=== PATIENT | male | born 1945 | race Hispanic/Latino ===

== ENCOUNTER 2017-05-27 06:32 | Inpatient (IN) | payer OTHER ==
[2017-05-24 11:23] LABS: BASOPHILS % 0.8 % (0.0-1.0); EOSINOPHILS # (AUTO) 0.3 (0.0-0.4); EOSINOPHILS % 5.2 % (0.0-6.0); HEMATOCRIT 44.2 % (38.2-49.6); HEMOGLOBIN 15.1 g/dL (14.0-18.0); LYMPHOCYTES # (AUTO) 1.4 (1.0-3.2); LYMPHOCYTES % 27.6 % (18.0-39.1); MEAN CORPUSCULAR HEMOGLOBIN 28.7 pg (28-32); MEAN CORPUSCULAR HGB CONC 34.2 g/dL (31-35); MONOCYTES # (AUTO) 0.4 (0.2-0.8); MONOCYTES % 8.5 % (4.4-11.3); NEUTROPHILS # (AUTO) 2.9 (2.1-6.9); NEUTROPHILS % 57.9 % (38.7-80.0); PLATELET COUNT 209 x10e3/uL (140-360); RED BLOOD COUNT 5.26 x10e6/uL (4.3-5.7); RED CELL DISTRIBUTION WIDTH 14.4 % (11.7-14.4)
[2017-05-24 11:37] LABS: ANION GAP 14.5 mmol/L (8-16); BLOOD UREA NITROGEN 20 mg/dL (7-26); BUN/CREATININE RATIO 25 (6-25); CALCIUM 10.1 mg/dL (8.4-10.2); CARBON DIOXIDE 29 mmol/L (22-29); CHLORIDE 104 mmol/L (98-107); CREATININE, SERUM 0.81 mg/dL (0.72-1.25); EST GLOMERULAR FILTRATION RATE > 60 ML/MIN (60-); GLUCOSE 121 mg/dL (74-118); POTASSIUM 4.5 mmol/L (3.5-5.1); SODIUM 143 mmol/L (136-145)
--- NOTE | 2017-05-24 11:56 | Diagnostic Imaging Report ---
PROCEDURE: Frontal and lateral views of the chest. COMPARISON: None. INDICATIONS: PRE OPERATIVE CHEST X-RAY FOR KNEE SURGERY FINDINGS: Lines/tubes: None. Lungs: The lungs are well inflated and clear. There is no evidence of pneumonia or pulmonary edema. Pleura: There is no pleural effusion or pneumothorax. Heart and mediastinum: Tortuous aorta. The heart and the mediastinum are normal. Bones: No acute bony abnormality. Mild degenerative changes of the spine. Upper abdomen: Multiple coils project over the upper abdomen. No free air under the diaphragm. IMPRESSION: No acute cardiopulmonary disease. Dictated by: Rell Jarrell M.D. on 05/24/2017 at 11:56 Electronically approved by: Rell Jarrell M.D. on 05/24/2017 at 11:56
[~2017-05-27] VITALS: Ht 124.2 cm; Wt 67.1 kg
[~2017-05-27 06:32] MED LIST: AMLODIPINE BESYL5 MG PO; GABAPENTIN300 MG PO; HYDROCHLOROTHIA25 MG PO; LEVOTHYROXINE112 MCG PO; MELOXICAM PO; METFORMIN HCL500 MG PO; SIMVASTATIN20 MG PO
--- OUTSIDE RECORDS SUMMARY | 2017-05-27 06:34 | XMS REPORT ---
[facility] Address Unknown Phone Unavailable Care Team Providers Care Process Development Chemist Name Role Phone CHRIS AVLARADO Unavailable Unavailable Problems This patient has no known problems. Allergies, Adverse Reactions, Alerts This patient has no known allergies or adverse reactions. Medications This patient has no known medications. Results Test Description Test Time Test Comments Text Results Atomic Results Result Comments CHEST 2 VIEWS [place] [address] Patient Name: CELSO GARCIA MR #: [id number] : 1945 Age/Sex: 71/M Req # : [id number] Adm Physician: Ordered by: CHRIS ALVARADO MD Report #: [id number] Location: OR Room/Bed: Procedure: [id number] DX/CHEST 2 VIEWS Exam Date: 05/24/17 Exam Time: 1110 REPORT STATUS: Signed PROCEDURE: Frontal and lateral views of the chest. COMPARISON: None. INDICATIONS: PRE OPERATIVE CHEST X- RAY FOR KNEE SURGERY FINDINGS: Lines/tubes: None. Lungs: The lungs are well inflated and clear. There is no evidence of pneumonia or pulmonary edema. Pleura: There is no pleural effusion or pneumothorax. Heart and mediastinum: Tortuous aorta. The heart and the mediastinum are normal. Bones: No acute bony abnormality. Mild degenerative changes of the spine. Upper abdomen: Multiple coils project over the upper abdomen. No free air under the diaphragm. IMPRESSION: No acute cardiopulmonary disease. Dictated by: Rell Flores M.D. on 2017 at 11:56 Electronically approved by: Rell Flores M.D. on 2017 at 11:56 Dictated By: RELL FLORES MD [id number] Transcribed By: NELIDA on 05/24/17 1156 COPY TO: CHRIS ALVARADO MD
[2017-05-27] MEDS ORDERED: DEXAMETHASONE SOD PHOS 10 MG/1 ML VIAL ONE (07:06)
[2017-05-27] MEDS ORDERED: GABAPENTIN 300 MG CAP ONE (07:06)
[2017-05-27] MEDS ORDERED: CELECOXIB 200 MG CAP ONE (07:06)
[2017-05-27] MEDS ORDERED: CEFAZOLIN SOD 2 GM/D5W 50ML 50 ML IV ONE (07:07)
[2017-05-27] MEDS ORDERED: ROPIVACAINE 246.25 MG, EPINEPHRINE HCL 1:1000 0.5 MG, CLONIDINE HCL 0.08 MG, KETOROLAC ... INJ ONE ×5 (07:30)
[2017-05-27] MEDS ORDERED: MUPIROCIN 2% OINT 22 GM TUBE ONE (08:30)
[2017-05-27] MEDS ORDERED: TRANEXAMIC ACID 1,000 MG/10 ML ML ONE (08:31)
[2017-05-27] MEDS ORDERED: BACITRACIN 50,000 UNIT VIAL ONE (08:31)
[2017-05-27] MEDS: SODIUM CHLORIDE 0.9% 1000ML 1,000 ML IV SCH ×3 (10:28→21:30)
[2017-05-27] MEDS ORDERED: DOCUSATE SODIUM 100 MG CAP PO PRN (10:30)
[2017-05-27] MEDS ORDERED: PROMETHAZINE HCL (IM) 25 MG/ML VIAL INJ PRN (10:30)
[2017-05-27] MEDS ORDERED: HYDROCODONE/APAP 7.5MG-325MG 1 EA TAB PO PRN (10:30)
[2017-05-27] MEDS ORDERED: ACETAMINOPHEN 650 MG SUPP PR PRN (10:30)
[2017-05-27] MEDS ORDERED: ZOLPIDEM TARTRATE 5 MG TAB PO PRN (10:30)
[2017-05-27] MEDS ORDERED: DIPHENHYDRAMINE HCL INJ 50 MG/ML VIAL IM/IV PRN (10:30)
[2017-05-27] MEDS ORDERED: KETOROLAC TROMETHAMINE 30 MG/ML VIAL IV PRN (10:30)
[2017-05-27] MEDS ORDERED: ONDANSETRON HCL INJ 2 MG/ML VIAL IV PRN (10:30)
[2017-05-27] MEDS ORDERED: HYDROCODONE/APAP 5MG-325MG TAB PO PRN (10:30)
--- NOTE | 2017-05-27 11:15 | Diagnostic Imaging Report ---
PROCEDURE: X-RAY RIGHT KNEE, ONE OR TWO VIEWS COMPARISON: None. INDICATIONS:POST-OP FINDINGS: See conclusion. CONCLUSION: Status post total right knee replacement with surrounding soft tissue swelling, air and jcarlos consistent with recent surgery. No periprosthetic displaced fractures. Dictated by: Louis Angel M.D. on 05/27/2017 at 11:15 Electronically approved by: Louis Angel M.D. on 05/27/2017 at 11:15
[2017-05-27 11:58] VITALS: BP 110/75
[2017-05-27 12:30] VITALS: BP 110/75
[2017-05-27] MEDS ORDERED: CEFAZOLIN SOD 1 GM/NS 50ML 50 ML IV SCH (14:00)
--- NOTE | 2017-05-27 14:20 | Operative Report ---
DATE OF PROCEDURE: May 27, 2017 ORDER RUNNER: Glen Santana PA-C The patient was brought to the operating room for induction of anesthesia. Throughout this case, my PA's assistance was necessary for retraction of soft tissue and positioning of the extremity. This allows for efficient and technically successful execution of the operation and is considered medically necessary. PREOPERATIVE DIAGNOSIS: Osteoarthritis, right knee. POSTOPERATIVE DIAGNOSIS: Osteoarthritis, right knee. PROCEDURE: Right total knee arthroplasty. INDICATIONS: The patient is a 71-year-old gentleman who has end-stage arthritis of both knees. He has failed conservative management and would like to proceed with a right total knee replacement. The risks and benefits of the procedure have been discussed. He states he understands and wishes to proceed. DESCRIPTION OF PROCEDURE: The patient was brought into the operating room and placed under general anesthetic. He received a regional block, prophylactic antibiotics and tranexamic acid in the holding area. His right lower extremity was prepped and draped in a sterile manner. A preoperative time out was performed. The extremity was exsanguinated and a proximal tourniquet was inflated to 300 mmHg. An anterior approach with a medial parapatellar arthrotomy was performed. Soft tissue releases were performed to bring the knee up into flexion with the patella everted. Marginal osteophytes, meniscal remnants and the cruciate ligaments were removed. A Daniel [employer] Nephew Jyothi II posterior stabilized knee system was used. An extramedullary cutting guide was used to resect the proximal tibia. The tibial baseplate was a size #4. A +2 mm cut was necessary due to the excessive medial wear. He also had quite limited motion prior to the surgery. The central fen punch was impacted and attention was directed towards the distal femur. An intramedullary cutting guide was used to resect the distal femur in 6 degrees of valgus and rotation referenced off of a combination of landmarks, including [place] line, the epicondylar axis and the posterior condyles. Complete loss of articular cartilage down to polished subchondral bone on the medial side was noted. The femoral component was a size # 5. The anterior and posterior cuts were made. Trial reductions were performed. An 11 mm ultra congruent tibial insert provided appropriate soft tissue balancing in full extension and 90 degrees of flexion. The patella had been resurfaced with a 32 mm x 7.5 mm patellar button. The thickness before after resurfacing was 22 mm. Patellar tracking was noted to be concentric. The quadriceps were moderately tight in any degree of flexion beyond 90 degrees. The trial implants were then all removed. A 100 mL premixed pericapsular DARRYL injection was placed into the soft tissue around the knee. The knee was thoroughly irrigated with a Pulsavac. The components were cemented into place using a single mix cephalic cement preloaded with antibiotics. Care was taken to remove extravasated cement. The wound was further irrigated with a pulsatile lavage while the cement cured. The arthrotomy was then closed with interrupted #1 Ethibond in a figure-of-8 fashion. The knee was put through flexion and extension each time to ensure a secure closure. The skin was closed with subcuticular Vicryl and jcarlos. A sterile bandage was applied. The patient was extubated and transferred to the recovery room and in stable condition. Blood loss was minimal. All needle and sponge counts were correct. Job#: [id number] JEFRY
[2017-05-27] MEDS: ACETAMINOPHEN 1000 MG/100 ML IV SCH ×3 (14:22→23:50)
[2017-05-27] MEDS: CEFAZOLIN SOD 1 GM VIAL IV SCH ×2 (16:44→23:49)
[2017-05-27 17:04] VITALS: BP 110/75
[2017-05-27] MEDS: CELECOXIB 200 MG CAP PO SCH (17:40)
[2017-05-27] MEDS: ASPIRIN 325 MG TAB PO SCH (17:40)
[2017-05-27] MEDS ORDERED: ROPIVACAINE 0.5% 5 MG/ML 30 ML SDV ONE (18:11)
[2017-05-27] MEDS ORDERED: LIDOCAINE 2% /EPINEPHRINE 20 ML SDV INJ ONE (18:11)
[2017-05-27 18:16] VITALS: BP 98/60
[2017-05-27] MEDS ORDERED: FENTANYL CITRATE/PF 100MCG/2 ML INJ ONE (18:19)
[2017-05-27] MEDS ORDERED: MIDAZOLAM HCL 2 MG/2 ML VIAL ONE (18:19)
[2017-05-27] MEDS ORDERED: MORPHINE SULFATE INJ 10 MG/ML ONE (18:19)
[2017-05-27] MEDS ORDERED: LIDOCAINE HCL 2% LOCAL INJ 5 ML SDV VIAL INJ ONE (18:32)
[2017-05-27] MEDS ORDERED: PROPOFOL IV EMULSION 10 MG/ML 20 ML VIAL ONE (18:32)
[2017-05-27] MEDS ORDERED: METOCLOPRAMIDE HCL 10 MG/2ML VIAL ONE (18:32)
[2017-05-27] MEDS ORDERED: ONDANSETRON HCL INJ 2 MG/ML VIAL ONE (18:32)
[2017-05-27] MEDS ORDERED: ACETAMINOPHEN 1000 MG/100 ML IV ONE (18:32)
[2017-05-27] MEDS ORDERED: SEVOFLURANE INHAL SOLN 250 ML PEN BTL ONE (18:32)
[2017-05-27 20:00] VITALS: BP 98/60
[2017-05-27] MEDS ORDERED: SIMVASTATIN 20 MG TAB PO SCH (21:00)
[2017-05-27 23:59] VITALS: BP_SYST 98; BP_SYST 99; BP_DIAS 60
[2017-05-28 04:17] VITALS: BP 105/71
[2017-05-28] MEDS: ACETAMINOPHEN 1000 MG/100 ML IV SCH (05:29)
[2017-05-28] MEDS ORDERED: LEVOTHYROXINE SODIUM 112 MCG TAB PO SCH ×2 (06:00→09:00)
[2017-05-28 06:16] LABS: HEMATOCRIT 30.9 % (38.2-49.6); HEMOGLOBIN 10.5 g/dL (14.0-18.0)
[2017-05-28 07:20] VITALS: BP 108/74
[2017-05-28] MEDS ORDERED: METFORMIN HCL 500 MG TAB PO SCH (09:00)
[2017-05-28] MEDS ORDERED: HYDROCHLOROTHIAZIDE 25 MG TAB PO SCH (09:00)
[2017-05-28] MEDS ORDERED: GABAPENTIN 300 MG CAP PO SCH (09:00)
[2017-05-28] MEDS ORDERED: AMLODIPINE BESYLATE 5 MG TAB PO SCH (09:00)
[2017-05-28] MEDS ORDERED: MELOXICAM 7.5 MG TAB PO SCH (09:00)
[2017-05-28] MEDS ORDERED: MELOXICAM 15 MG PO SCH (09:00)
[2017-05-28] MEDS ORDERED: DEXTROSE 50% SYRINGE 50 ML IV PRN (09:15)
--- NOTE | 2017-05-28 09:33 | History and Physical ---
NO DICTATION, LENGTH 6 SECONDS. Job#: [id number] MH
[2017-05-28] MEDS ORDERED: CEFAZOLIN SOD 1 GM VIAL IV SCH (10:00)
[2017-05-28] MEDS: CEFAZOLIN SOD 1 GM VIAL IV SCH (10:14)
[2017-05-28] MEDS: CELECOXIB 200 MG CAP PO SCH (10:16)
[2017-05-28] MEDS: ASPIRIN 325 MG TAB PO SCH (10:16)
[2017-05-28] MEDS ORDERED: ACETAMINOPHEN 1000 MG/100 ML IV PRN (10:30)
--- NOTE | 2017-05-28 10:37 | Consultation ---
DATE OF CONSULTATION: May 28, 2017 PRIMARY CARE PHYSICIAN: Dr. Marcello Overton REASON FOR CONSULTATION: Medical management. HISTORY: Patient is a 71-year-old male with multiple chronic baseline medical problems. The patient has history of back surgery. He is also now status post right knee replacement. The patient is stable. Pain controlled. He does not have any chest pain or shortness breath. The patient is in recovery postop. PAST MEDICAL HISTORY: Osteoarthritis, diabetes, type 2, hypertension, hyperlipidemia, diabetic neuropathy, hypothyroidism. PAST SURGICAL HISTORY: Lumbosacral spine surgeries, status post right knee replacement. SOCIAL HISTORY: Patient does not smoke or use alcohol. No recreational drug use. ALLERGIES: NO KNOWN ALLERGIES. HOME MEDICATIONS: Norvasc, gabapentin, hydrochlorothiazide, levothyroxine, metformin, meloxicam, and simvastatin. REVIEW OF SYSTEMS: Postop and pain adequate and appropriate. PHYSICAL EXAMINATION VITAL SIGNS: Temperature is 98, blood pressure 105/71, pulse rate 63, respirations 18. GENERAL: The patient is not in acute distress. He is awake. HEENT: Normocephalic, atraumatic and anicteric. NECK: Supple grossly. PULMONARY: Clear. CARDIOVASCULAR: Regular rate and rhythm. ABDOMEN: Soft and unremarkable. EXTREMITIES: No gross cyanosis or edema. Postop right knee replacement. NEUROLOGIC: No gross focal deficit. LABORATORY: Sodium is 143, potassium 4.3, chloride 104, bicarb 29, BUN 20, creatinine 0.8, glucose 121. WBC is 5, hemoglobin 10.5, hematocrit 31, and platelets 209,000. IMPRESSION 1. Postoperative day #1 right knee replacement. 2. Chronic multiple baseline problems. 3. Hypertension. 4. Hyperlipidemia. 5. Diabetes, type 2. PLAN: Adjust home medications. Pain control. PT and OT. Postop care. Thank you, Dr. Driver, for this consultation. Will adjust the patient's medications. Job#: [id number] RI
[2017-05-28 10:56] VITALS: BP 127/79
[2017-05-28 10:57] VITALS: BP 127/79
[2017-05-28] MEDS ORDERED: INSULIN LISPRO 100 UNIT/1 ML 3ML VIAL SQ SCH (11:30)
[2017-05-28] MEDS ORDERED: ASPIRIN325 MG PO (11:59)
[2017-05-28 16:16] VITALS: BP 129/86
== END 2017-05-28 16:45 | disposition home or self-care (01) | DRG 470 ==
LOC: OR 06:32 → IMCU 12:24
PROVIDERS: ADMIT Specialist; ATTEND Specialist
PROC: 0SRC0J9 Replacement of Right Knee Joint with Synthetic Substitute, Cemented, Open Approach (ICD-10-PCS; principal; 2017-05-27 09:30)
DX: M17.0 Bilateral primary osteoarthritis of knee (principal); E11.40 Type 2 diabetes mellitus with diabetic neuropathy, unspecified; E78.5 Hyperlipidemia, unspecified; I10 Essential (primary) hypertension; E03.9 Hypothyroidism, unspecified; Z79.82 Long term (current) use of aspirin
CPT/HCPCS: 36415; 71046; 80048; 82948; 85014; 85018; 85025; 86850; 86900; 86920; 96372; C1713; J0171; J0690; J1100; J1885; J2001; J2250; J2270; J2405; J2765; J2795; J7030

== ENCOUNTER 2017-11-12 06:27 | Observation (INO) | payer OTHER ==
[~2017-11-12] VITALS: Ht 177.8 cm; Wt 69.9 kg
[~2017-11-12 06:27] MED LIST changes: +ASPIRIN325 MG PO; +MELOXICAM15 MG PO; +TYLENOL WITH C1 EACH PO
[2017-11-12] MEDS ORDERED: DEXAMETHASONE SOD PHOS 10 MG/1 ML VIAL ONE (06:42)
[2017-11-12] MEDS ORDERED: CEFAZOLIN SOD 2 GM/D5W 50ML 50 ML IV ONE (06:42)
[2017-11-12] MEDS ORDERED: CELECOXIB 200 MG CAP ONE (06:42)
[2017-11-12] MEDS ORDERED: GABAPENTIN 300 MG CAP ONE (06:43)
[2017-11-12] MEDS ORDERED: TRANEXAMIC ACID 1,000 MG/10 ML ML ONE (06:50)
[2017-11-12] MEDS ORDERED: BACITRACIN 50,000 UNIT VIAL ONE (06:50)
[2017-11-12] MEDS ORDERED: ROPIVACAINE 246.25 MG, EPINEPHRINE HCL 1:1000 0.5 MG, CLONIDINE HCL 0.08 MG, KETOROLAC ... INJ ONE ×5 (07:30)
[2017-11-12] MEDS ORDERED: ACETAMINOPHEN 1000 MG/100 ML 100 ML IV ONE ×2 (08:11→13:36)
[2017-11-12] MEDS ORDERED: SODIUM CHLORIDE 0.9% 1000ML 1,000 ML IV SCH (09:53)
[2017-11-12] MEDS ORDERED: HYDROCODONE/APAP 7.5MG-325MG 1 EA TAB PO PRN (10:00)
[2017-11-12] MEDS ORDERED: DOCUSATE SODIUM 100 MG CAP PO PRN (10:00)
[2017-11-12] MEDS ORDERED: ONDANSETRON HCL INJ 2 MG/ML VIAL IV PRN (10:00)
[2017-11-12] MEDS ORDERED: ZOLPIDEM TARTRATE 5 MG TAB PO PRN (10:00)
[2017-11-12] MEDS ORDERED: ACETAMINOPHEN 650 MG SUPP PR PRN (10:00)
[2017-11-12] MEDS ORDERED: PROMETHAZINE HCL (IM) 25 MG/ML VIAL INJ PRN (10:00)
[2017-11-12] MEDS ORDERED: DIPHENHYDRAMINE HCL INJ 50 MG/ML VIAL IM/IV PRN (10:00)
[2017-11-12] MEDS ORDERED: HYDROCODONE/APAP 5MG-325MG TAB PO PRN (10:00)
[2017-11-12] MEDS ORDERED: KETOROLAC TROMETHAMINE 30 MG/ML VIAL IV PRN (10:00)
--- NOTE | 2017-11-12 12:13 | Diagnostic Imaging Report ---
Exam: Left Knee AP and lateral. History: Status post left knee replacement Comparison: None. Findings: See impression. Impression: 1. Status post total knee replacement with femoral and tibial components in satisfactory alignment. Hardware is intact. 2. Expected postoperative changes of soft tissue gas and multiple metallic jcarlos. 3. Rest of the bony structures intact. Signed by: Dr. Mike Pollard M.D. on 11/12/2017 12:09 PM
--- NOTE | 2017-11-12 12:51 | Operative Report ---
DATE OF PROCEDURE: November 12, 2017 PRESIDENT [place]: Glen Santana PA-C The patient was brought to the operating room for induction of anesthesia. Throughout this case, my PA's assistance was necessary for retraction of soft tissue and positioning of the extremity. This allows for efficient and technically successful execution of the operation and is considered medically necessary. PREOPERATIVE DIAGNOSIS: Osteoarthritis, left knee. POSTOPERATIVE DIAGNOSIS: Osteoarthritis, left knee. PROCEDURE: Left total knee arthroplasty. INDICATIONS: The patient is a 71-year-old gentleman who has end-stage arthritis in his left knee. He has failed conservative management and would like to proceed with a left total knee replacement. He went through a right total knee replacement earlier this year and is happy with his progress. I have reviewed the risks and benefits. He states he understands and wishes to proceed. DESCRIPTION OF PROCEDURE: The patient was brought to the operating room and placed under general anesthetic. He received a regional block, prophylactic antibiotics and tranexamic acid in the holding area. His left lower extremity was prepped and draped in a sterile manner. A preoperative time out was performed. Extremity was exsanguinated, and a proximal tourniquet was inflated to 300 mmHg. An anterior approach with a medial parapatellar arthrotomy was performed. Clear synovial fluid was removed from the joint. Soft-tissue releases were performed to bring the knee up into flexion with the patella everted. Complete loss of articular cartilage in the medial compartment was noted. The cruciate ligaments were removed. A Daniel and Nephew Jyothi II posterior stabilized knee system was used throughout the case. Meniscal remnants and marginal osteophytes were removed. An extramedullary cutting guide was used to resect the proximal tibia. A +2 mm cut was performed to account for the medial wear and the poor motion prior to the surgery. The tibial baseplate was noted to be a size #4. The central fin punch was impacted, and attention was directed towards the distal femur. An intramedullary cutting guide was used to resect the distal femur in 6 degrees of valgus and rotation referencing off of the epicondylar axis, [place]'s line and the posterior condyles. The femoral component was a size #5. Trial reductions were performed. An 11-mm ultracongruent tibial insert provided appropriate soft-tissue balancing in flexion and extension. The patella was resurfaced with a 32-mm x 7.5-mm patellar button. The thickness was checked before and after and was right at 22 mm. Patellar tracking was concentric. The quadriceps muscles were quite tight due to the previous limited motion. The trial implants were removed. A 100-mL premixed pericapsular DARRYL injection was placed into the surrounding soft tissue. The knee was thoroughly irrigated with a shower-tip pulsatile lavage. The components were cemented into place using a single mix of [place] cement preloaded with antibiotics. Care was taken to remove extravasated cement. The wound was further irrigated while the cement cured. The arthrotomy was then closed with interrupted #1 Ethibond. The knee was put through flexion and extension to ensure a secure closure. The skin was closed with subcuticular Vicryl and jcarlos. A sterile bandage was applied. The patient was extubated and transported to the recovery room in stable condition. Blood loss was minimal. All needle and sponge counts were correct. Job#: [id number]
[2017-11-12] MEDS: ACETAMINOPHEN 1000 MG/100 ML IV SCH ×2 (13:38→17:53)
[2017-11-12] MEDS ORDERED: CEFAZOLIN SOD 1 GM/D5W 50ML 50 ML IV SCH (14:00)
[2017-11-12] MEDS ORDERED: ISOFLURANE INHAL SOLN 250 ML BTL INH ONE (14:21)
[2017-11-12] MEDS ORDERED: DEXAMETHASONE SOD PHOS INJ 4 MG/ML VIAL ONE (14:21)
[2017-11-12] MEDS ORDERED: ROCURONIUM BROMIDE 10 MG/ML 5ML VIAL ONE (14:21)
[2017-11-12] MEDS ORDERED: EPHEDRINE SULFATE INJ 50 MG/10 ML SYR ONE (14:21)
[2017-11-12] MEDS ORDERED: ONDANSETRON HCL INJ 2 MG/ML VIAL ONE (14:21)
[2017-11-12] MEDS ORDERED: PROPOFOL IV EMULSION 10 MG/ML 20 ML VIAL ONE (14:21)
[2017-11-12] MEDS ORDERED: LIDOCAINE HCL 2% LOCAL INJ 5 ML SDV VIAL INJ ONE (14:21)
[2017-11-12 15:08] VITALS: BP 103/64
[2017-11-12 15:37] VITALS: BP 103/61
[2017-11-12 15:47] VITALS: BP 103/61
[2017-11-12] MEDS: CEFAZOLIN SOD 1 GM VIAL IV SCH (16:00)
[2017-11-12] MEDS ORDERED: CELECOXIB 100 MG CAP PO SCH (17:00)
[2017-11-12] MEDS: CELECOXIB 200 MG CAP PO SCH (17:10)
[2017-11-12] MEDS: METFORMIN HCL 500 MG TAB PO SCH (17:10)
[2017-11-12] MEDS: ASPIRIN 325 MG TAB PO SCH (17:10)
[2017-11-12] MEDS ORDERED: FENTANYL CITRATE/PF 100MCG/2 ML INJ ONE (19:14)
[2017-11-12] MEDS ORDERED: MIDAZOLAM HCL 2 MG/2 ML VIAL ONE (19:14)
[2017-11-12] MEDS ORDERED: ROPIVACAINE 0.5% 5 MG/ML 30 ML SDV ONE (19:32)
[2017-11-12] MEDS ORDERED: LIDOCAINE 2% /EPINEPHRINE 20 ML SDV INJ ONE (19:32)
[2017-11-12 20:00] VITALS: BP 108/62
[2017-11-12 20:05] VITALS: BP 108/62
[2017-11-12] MEDS ORDERED: SIMVASTATIN 20 MG TAB PO SCH (21:00)
[2017-11-13] VITALS: BP 98/64
[2017-11-13] MEDS: CEFAZOLIN SOD 1 GM VIAL IV SCH ×2 (00:30→07:48)
[2017-11-13 04:00] VITALS: BP 100/56
[2017-11-13 05:41] LABS: HEMATOCRIT 32.5 % (38.2-49.6)
[2017-11-13] MEDS: ACETAMINOPHEN 1000 MG/100 ML IV SCH ×2 (05:47)
[2017-11-13] MEDS ORDERED: LEVOTHYROXINE SODIUM 112 MCG TAB PO SCH (06:00)
[2017-11-13 07:30] VITALS: BP 147/79
[2017-11-13] MEDS: CELECOXIB 200 MG CAP PO SCH (08:40)
[2017-11-13] MEDS: METFORMIN HCL 500 MG TAB PO SCH (08:40)
[2017-11-13] MEDS: ASPIRIN 325 MG TAB PO SCH (08:40)
[2017-11-13] MEDS ORDERED: ASPIRIN325 MG PO (08:43)
[2017-11-13] MEDS ORDERED: HYDROCODONE/APAP 7.5MG-325MG 1 EA TAB PO PRN (08:45)
[2017-11-13] MEDS ORDERED: AMLODIPINE BESYLATE 5 MG TAB PO SCH (09:00)
[2017-11-13] MEDS ORDERED: GABAPENTIN 300 MG CAP PO SCH (09:00)
[2017-11-13] MEDS ORDERED: HYDROCHLOROTHIAZIDE 25 MG TAB PO SCH (09:00)
[2017-11-13] MEDS ORDERED: ACETAMINOPHEN 1000 MG/100 ML IV PRN (10:00)
[2017-11-13 10:15] VITALS: BP 147/79
[2017-11-13 12:18] VITALS: BP 107/60
== END 2017-11-13 12:45 | disposition home health service (06) ==
LOC: OR 06:27 → PACU V 09:55 → MED/SURG 14:49
PROVIDERS: ADMIT Specialist; ATTEND Specialist
DX: M17.12 Unilateral primary osteoarthritis, left knee (principal); E11.9 Type 2 diabetes mellitus without complications; E78.00 Pure hypercholesterolemia, unspecified; I10 Essential (primary) hypertension; Z79.84 Long term (current) use of oral hypoglycemic drugs; Z96.651 Presence of right artificial knee joint; F41.9 Anxiety disorder, unspecified; E03.9 Hypothyroidism, unspecified; E78.5 Hyperlipidemia, unspecified
CPT/HCPCS: 27447; 36415 ×2; 73560; 82948 ×2; 85014; 85018; 86850; 86900; 86920; 97116; 97161; 97530; G0378 ×2; G8978; G8979; J0171; J0690 ×2; J1100 ×2; J1885 ×2; J2001 ×2; J2250; J2405; J2795; J7030